=== PATIENT | male | born 1975 | race Caucasian/White ===

== ENCOUNTER 2017-12-01 09:59 | Emergency (ER) | payer OTHER ==
[~2017-12-01] VITALS: Ht 175.3 cm; Wt 95.2 kg
[2017-12-01 10:01] VITALS: BP 154/91; PULSE 78; RESP 18; TEMP 97.8; O2SAT 98
--- NOTE | 2017-12-01 10:32 | PD ---
Physical Exam Time Seen by Provider: 10:27 Narrative 42yo M c/o left eye pain that woke him up this morning from sleep. Unknown trauma. Sensation of something his eye. Denies change in vision. + photophobia. Denies fever, vomiting. Patient seen in triage. Awaiting bed placement. See next providers note for final patient disposition. Data Data Last Documented VS Vital Signs Date Time Temp Pulse Resp B/P (MAP) Pulse Ox O2 Delivery O2 Flow Rate FiO2 12/01/17 10:01 97.8 78 18 154/91 (112) 98 Room Air MDM Supervised Visit with OLIVE: Fernanda Lowry Dec 01, 2017 10:32
[2017-12-01] MEDS ORDERED: PROPARACAINE HCL 0.5% OPHT SOLN 15 ML BTL LEFT EYE ONE (10:45)
[2017-12-01] MEDS ORDERED: KETO1SOL3 LEFT EYE (11:33)
[2017-12-01] MEDS ORDERED: CIPR3.5O LEFT EYE (11:33)
--- NOTE | 2017-12-01 11:33 | PD ---
HPI Chief Complaint: Eye Problems/Injury Time Seen by Provider: 11:16 Travel History International Travel<30 days: No Contact w/Intl Traveler<30days: No Traveled to known affect area: No History of Present Illness HPI 42 y male presents to the ED c/o left eye irritation since yesterday. States he had a mild irritation of his left eye while he had contacts in and may have scratched his eye with the contact lens. He has developed increased irritation throughout the day. Patient states that he was able to remove the contact completely. Patient denies blurred vision, pain with ocular movements, discharge, or fever. 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 He says he has mild to moderate constant pain to his left eye. He has full range of motion of his eyeballs without pain. States he has mild photophobia. He has difficulty keeping his eyes open secondary to the irritation. Patient has not seen an hand weaver yet for this condition. [facility] Past Medical History Medical History: Denies Significant Hx Tetanus Vaccination: < 5 Years ?: Not Past Surgical History Surgical History: No Previous Surgery Social History Alcohol Use: Yes (socially ) Tobacco Use: No Substance Use: No Allergies-Medications (Allergen,Severity, Reaction): Coded Allergies: Penicillins (Verified Allergy, Severe, Swelling, 12/01/17) Reported Meds & Prescriptions Reported Meds & Active Scripts Active Acular Opth Drops (Ketorolac Tromethamine) 0.5% Drops 1 Drop LEFT EYE QID 7 Days Ciloxan Opth Oint (Ciprofloxacin) 0.3% Oint 0.5 Inch LEFT EYE TID 7 Days Review of Systems Except as stated in HPI: all other systems reviewed are Neg Physical Exam Narrative GENERAL: well developed, well nourished, anxious SKIN: Focused skin assessment warm/dry. HEAD: Atraumatic. Normocephalic. EYES: Pupils equal and round. No scleral icterus. Left eye scleral injection, negative Chirag's sign, negative fluorescein uptake. Ocular pressures are 16 left eye, 14 right eye. Eyelids without edema. No proptosis. No ptosis 20/40 vision left eye ENT: No nasal bleeding or discharge. Mucous membranes pink and moist. NECK: Trachea midline. No JVD. No lymphadenopathy CARDIOVASCULAR: Regular rate and rhythm. No murmur appreciated. RESPIRATORY: No accessory muscle use. Clear to auscultation. Breath sounds equal bilaterally. MUSCULOSKELETAL: No obvious deformities. No clubbing. No cyanosis. No edema. NEUROLOGICAL: Awake and alert. No obvious cranial nerve deficits. Motor grossly within normal limits. Normal speech. PSYCHIATRIC: Appropriate mood and affect; insight and judgment normal. Data Data Last Documented VS Orders Orders Proparacaine 0.5% Opth Soln (Alcaine 0.5 (12/01/17 10:45) Eye Irrigation (12/01/17 11:36) Lorazepam (Ativan) (12/01/17 12:30) Ed Discharge Order (12/01/17 12:24) [facility] Medical Decision Making Medical Screen Exam Complete: Yes Emergency Medical Condition: Yes Differential Diagnosis Left eye foreign body,, conjunctivitis, corneal abrasion, corneal laceration Narrative Course 42 y male presents to the ED c/o left eye irritation since yesterday. States he had a mild irritation of his left eye while he had contacts in and may have scratched his eye with the contact lens. He has developed increased irritation throughout the day. Patient states that he was able to remove the contact completely. Patient denies blurred vision, pain with ocular movements, discharge, or fever. 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 He says he has mild to moderate constant pain to his left eye. He has full range of motion of his eyeballs without pain. States he has mild photophobia. He has difficulty keeping his eyes open secondary to the irritation. Patient has not seen an hand weaver yet for this condition. Vital signs stable. Physical exam- left eye Sidel's signs negative, mild photophobia. No pain with ocular movements. EOMI PERRLA. Eye irrigation performed today. Because of patient's history, we'll treat for corneal abrasion although I did not see one with fluorescein stain. Cipro ophth, acular eye drops for comfort. Patient was requesting proparacaine for home. I advised that this medication may be toxic to the eyes and is not appropriate for outpatient use. Patient was very anxious during the exam and throughout the discussion today. Patient requests a dose of medication. Ativan 0.5 mg administered. Patient advised to follow-up with an hand weaver within 2 days. Return to the emergency department for worsening or persists symptoms. Pt advised to avoid contact lens use until cleared by an hand weaver. Patient may be exhibiting viral conjunctivitis however, patient's history may indicate a foreign body which is why I treated today. I advised that because this may be viral it is contagious. Advised to wash hands frequently and avoid touching the eye. Diagnosis Primary Impression: Conjunctivitis Qualified Codes: H10.32 - Unspecified acute conjunctivitis, left eye Referrals: Customer Sales Representative Additional Instructions: Use medications as prescribed. If her symptoms persist or worsen return to the emergency room. If your vision significantly diminished or you develop headache return to the emergency department. Scripts Ketorolac Opth Drops (Acular Opth Drops) 0.5% Drops 1 DROP LEFT EYE QID for Pain/Inflammation for 7 Days, #5 ML 0 Refills Prov: Jayda Back 12/01/17 Ciprofloxacin Opth Oint (Ciloxan Opth Oint) 0.3% Oint 0.5 INCH LEFT EYE TID for Infection for 7 Days, #1 TUBE 0 Refills Prov: Jayda Back 12/01/17 Disposition: 01 DISCHARGE HOME Condition: Stable Jayda Back Dec 01, 2017 11:33
[2017-12-01] MEDS ORDERED: LORazepam 0.5 MG TAB PO ONE (12:30)
== END 2017-12-01 12:32 | disposition home or self-care (01) ==
LOC: NEPK 09:59
DX: H10.9 Unspecified conjunctivitis (principal); Z79.899 Other long term (current) drug therapy; Z88.0 Allergy status to penicillin
CPT/HCPCS: 99284